=== PATIENT | female | born 1995 | race Asian ===

== ENCOUNTER 2017-02-18 20:58 | Inpatient (IN) | payer SELFPAY ==
[2017-02-18] MEDS ORDERED: fentaNYL 100 MCG/2 ML INJ IVP ONE ×2 (21:11→23:13)
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
[2017-02-18 21:26] LABS: ADD DIFF? YES; ADD MORPH? NO; ADD SCAN? NO; ATYPICAL LYMPHOCYTE FLAG 20 (0-99); FRAGMENT RBC FLAG 0 (0-99); HEMATOCRIT 39.1 % (38.0-47.0); HEMOGLOBIN 13.5 g/dL (12.6-16.3); LEFT SHIFT FLG 20 (0-99); LIPEMIA HEMOLYSIS FLAG 90 (0-99); MEAN CELL HEMOGLOBIN CONCENTR. 34.5 g/dL (32.4-36.7); MEAN CELL VOLUME 89.7 fL (81.5-99.8); MEAN PLATELET VOLUME 10.1 fL (8.7-11.7); PLATELET CLUMPS FLAG 10 (0-99); PLATELET COUNT 396 10^3/uL (150-400); RED BLOOD CELL COUNT 4.36 10^6/uL (4.18-5.33); RED CELL DISTRIBUTION WIDTH 11.9 % (11.5-15.2)
[2017-02-18 21:51] LABS: PLATELET ESTIMATE ADEQUATE (ADEQ)
[2017-02-18 22:02] LABS: ANION GAP 14 mEq/L (8-16); CALCIUM 9.5 mg/dL (8.5-10.4); CARBON DIOXIDE 20 mEq/l (22-31); CHLORIDE 105 mEq/L (97-110); CREATININE 0.7 mg/dL (0.6-1.0); ETHANOL SERUM < 10 mg/dL (0-10); GLOMERULAR FILTRATION RATE > 60; GLUCOSE 101 mg/dL (70-100); POTASSIUM 4.1 mEq/L (3.5-5.2); SODIUM 139 mEq/L (134-144)
[2017-02-18 22:04] LABS: INR 1.1 (0.83-1.16); PROTIME(PATIENT) 14.1 SEC (12.0-15.0)
[2017-02-18 22:05] LABS: APTT 25.8 SEC (23.0-38.0)
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
[2017-02-18] MEDS ORDERED: fentaNYL 100 MCG/2 ML INJ ONE (23:14)
[2017-02-19] MEDS: HYDROmorphONE/DILAUDID 1 MG/ML SYR IVP PRN ×2 (00:08→14:59)
[2017-02-19] MEDS: ONDANSETRON 4 MG/2 ML VIAL IVP PRN ×2 (00:28→15:42)
[2017-02-19] MEDS: HYDROCODONE/APAP 5/325 TAB PO PRN ×4 (02:30→13:38)
[2017-02-19] MEDS: IBUPROFEN 600 MG TAB PO SCH ×3 (05:04→21:03)
[2017-02-19] MEDS: ENOXAPARIN 40 MG/0.4 ML SYR SC SCH (07:31)
[2017-02-19] MEDS: BACITRACIN ZINC 14.2 GM OINTTUBE TP SCH ×2 (07:35→19:36)
[2017-02-19] MEDS ORDERED: LACTULOSE 20 GM/30 ML UDCUP PO PRN (10:53)
[2017-02-19] MEDS ORDERED: BISACODYL 10 MG SUPP PR PRN (10:53)
[2017-02-19] MEDS ORDERED: POLYETHYLENE GLYCOL 3350 17 GM PKT PO PRN (10:53)
[2017-02-19] MEDS ORDERED: MAGNESIUM HYDROXIDE 30 ML UDCUP PO PRN (10:53)
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
[2017-02-19] MEDS: SENNOSIDES/DOCUSATE SODIUM TAB PO SCH ×2 (13:42→19:36)
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
[2017-02-20] MEDS: HYDROCODONE/APAP 5/325 TAB PO PRN ×3 (04:11→22:45)
[2017-02-20] MEDS: IBUPROFEN 600 MG TAB PO SCH ×3 (05:01→22:39)
[2017-02-20] MEDS: ENOXAPARIN 40 MG/0.4 ML SYR SC SCH (08:40)
[2017-02-20] MEDS: SENNOSIDES/DOCUSATE SODIUM TAB PO SCH ×2 (08:40→22:39)
[2017-02-20] MEDS: BACITRACIN ZINC 14.2 GM OINTTUBE TP SCH ×2 (08:40→22:40)
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
[2017-02-21] MEDS: HYDROCODONE/APAP 5/325 TAB PO PRN (04:36)
[2017-02-21 08:26] VITALS: BP 102/70; PULSE 75; RESP 16; TEMP 98.6; O2SAT 96
[2017-02-21] MEDS: SENNOSIDES/DOCUSATE SODIUM TAB PO SCH (08:34)
[2017-02-21] MEDS: ENOXAPARIN 40 MG/0.4 ML SYR SC SCH (08:34)
[2017-02-21] MEDS: IBUPROFEN 600 MG TAB PO SCH ×2 (08:34→14:12)
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
[2017-02-21] MEDS: BACITRACIN ZINC 14.2 GM OINTTUBE TP SCH (14:04)
== END 2017-02-21 15:20 | disposition home or self-care (01) | DRG 536 ==
LOC: EDUNIT# → OBSVTOIN 22:39 → F3N 23:32
PROVIDERS: ADMIT Surgery; ATTEND Surgery
DX: S32.435A Nondisplaced fracture of anterior column [iliopubic] of left acetabulum, initial encounter for closed fracture (principal); S32.512A Fracture of superior rim of left pubis, initial encounter for closed fracture; S32.009A Unspecified fracture of unspecified lumbar vertebra, initial encounter for closed fracture; S06.0X0A Concussion without loss of consciousness, initial encounter; V03.10XA Pedestrian on foot injured in collision with car, pick-up truck or van in traffic accident, initial encounter; Y92.410 Unspecified street and highway as the place of occurrence of the external cause
CPT/HCPCS: 82947-QW; 92523-GN; 96374; 97116-GP; 97162-GP; 97166-GO; 97530-GP; 97535-GO; G0480; J1170; J1650; J2405; J3010

== ENCOUNTER 2017-12-15 12:44 | Inpatient (IN) | payer SELFPAY ==
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
[2017-12-15 14:04] LABS: PLATELET COUNT 368 10^3/uL (150-400)
[2017-12-15] MEDS ORDERED: NICOTINE 21 MG/24 HR PATCH TD ONE (18:41)
[2017-12-15] MEDS ORDERED: LORazepam 1 MG TAB ONE (20:07)
[2017-12-15] MEDS ORDERED: LORazepam 1 MG TAB PO ONE (20:10)
[2017-12-16] MEDS ORDERED: NICOTINE POLACRILEX 2 MG GUM B ONE (12:36)
[2017-12-16] MEDS ORDERED: NICOTINE 21 MG/24 HR PATCH TD ONE (12:54)
[2017-12-16] MEDS ORDERED: OLANZapine 10 MG TAB ONE (17:51)
[2017-12-16] MEDS ORDERED: OLANZapine 10 MG TAB PO SCH (21:00)
--- NOTE | 2017-12-16 22:29 | ASMTTCLDSP ---
TLC Discharge Disposition Disposition: Answers: Admit Disposition Notes: Notes: Per [facility] report; "Per consult w/ [facility] ED Dr. Asencio, [facility] on-call and [facility] motor assembly supervisor Tamra Ibarra, pt continues to meet 27-65 criteria for inpatient hospitalization (IP) due to grave disability. Pt refused to sign rights and pt's copy was placed on her chart for her [facility] RN to provide to her prior to transport to IP placement. [facility] to commence IP bed search." Discharge Concerns/Recommendations: Notes: Per [facility] worker, consultation with [facility] ED physician Ryne Plolack MD and [facility] psychiatrist Dr. Dang, both concurred that patient appears to meet 27-65 criteria requiring psychiatric hospitalization as pt appears to be an imminent risk of harm to self and gravely disabled due to a mental illness condition. The pt was given the 3[facility] prohibited belongings lost while in the emergency department. [facility] psychiatrist Efraín Wakefield MD agreed to accept pt for admission to 3[facility]. Was patient given the Answers: Yes Inpatient Behavioral Health Prohibited Belongings List while in the ED? For inpatient Efraín Wakefield MD admission, the following psychiatrist agreed to accept patient for admission to Behavioral Health ([facility]): Type of Hold: Answers: M1/72-hour Hold Hold initiated by: Answers: Other Notes: Licensed Professional Counselor Date Signed: 12/16/2017 12:29 PM Electronically Signed By:Maliha Grullon
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
--- NOTE | 2017-12-16 22:29 | BAPA ---
[f rep st] ADMISSION PSYCHIATRIC ASSESSMENT DATE OF SERVICE: 12/16/2017 CHIEF COMPLAINT: When asked why the patient is here at the hospital, the patient just stares at this interviewer with a blank stare. Several minutes ago by, the interviewer again asked the patient why she is here and she continues to just stare at this interviewer with a blank stare and does not respond. HISTORY OF PRESENT ILLNESS: The majority of this data is taken from past medical records per [facility] ER report. The patient is a 22- year-old female with recent hospitalization at [facility] for altered mentation, nonverbal, believed to be more than likely secondary to psychiatric etiology. Today, she arrives via private vehicle with her boyfriend and her brother, after being evaluated at [facility] and was recommended she come to the ER for psychiatric placement. History is obtained from her boyfriend who explains that prior to 2 weeks ago, the patient was acting "normally" and 2 weeks ago she was arrested in [place] after she was spontaneously getting into people's vehicles while they were stopped at a stoplights, tendon parking lots. She would get into the vehicles and not say anything and stare at the individual. She subsequently was arrested as a Tamra Gonzalez. The boyfriend followed missing person's report until series of events she was found at a hospital and subsequently evaluated. She has had extensive medical evaluation including CT, MRI, EEG, all of which has been grossly negative per the boyfriend. The specific etiology of her new onset nonverbal status is incompletely clear. She does follow commands. Per ED clinician " when I interviewed the patient she will stare at me, she will follow commands, but will not speak with me." Per [facility] records, date of admission was 12/02/2017 at [facility]. The patient was apparently brought in by police after she was trying to get into a stranger's car in the emergency department. She was described as nonverbal. At one point she tried to flee the emergency department. She presented disheveled, disoriented with thought walking, apparently confused and staring for a long time without answering questions or speaking. The patient is currently admitted at [address] [place] [address] involuntarily and is on an M1 hold due to being gravely disabled and is hospitalized for safety crisis stabilization, medication , evaluation. Further information regarding the patient's history of present illness will be gathered throughout the patient's stay from the patient's past medical records and from the patient once patient's psychiatric condition clears and patient is able to appropriately answer interview questions. PAST PSYCHIATRIC HISTORY: Per [facility] from admission 2017, the patient has never been hospitalized psychiatrically. She has never been in any kind of mental health treatment in the past. She has never taken psychotropic medications. ALLERGIES: No known allergies. CURRENT MEDICATIONS: The patient is currently not on any medications. PAST MEDICAL HISTORY: Per the [facility] ED report. No pertinent medical or surgical history. FAMILY/SOCIAL HISTORY: Per [facility] from admission 12/02/2017 , not much is known as far as social history. The patient is really unable to provide much of anything and patient's ex-boyfriend, Fausto, also knows very little about her history. In any event, we do know that she came to [place] from [facility] [place] approximately 2 years ago. Her ex-boyfriend states that she refers to her mother and her father in [place], but speaks predominantly about her father there. She was born in [place]. She graduated from high school there. She spoke Bengali fluently when she arrived in [place] 2 years ago and she has been living with family members, who she also called mother and father in [place]. Her ex-boyfriend does not believe that this is her biological mother and father, but maybe an aunt and uncle on her father's side of the family. 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 Unclear if this was the same restaurant where she was working when she was dating Fausto. No other social information is available at this time. SOCIAL HISTORY: Per [facility] ED report from current hospitalization. The patient was positive for marijuana, otherwise there were no reports of illicit drug use. No other information is listed in the history and the patient is currently unable to described any social history, and does not respond when asked about social history. SUBSTANCE USE HISTORY: The patient's UDS was positive for marijuana, otherwise , there were no reports of illicit drug use. FAMILY PSYCHIATRIC HISTORY: There is no known family psychiatric history at this time. Again, this will be ongoing throughout the course of the patient's stay as the patient's mentation improves and we are able to gather more information from patient's past medical records and from the patient's friends and family. ADMISSION LABS AND STUDIES: test negative. Chemistry within normal limits. UDS per this admission negative for marijuana and negative for all other illicit substances. Labs dated 12/15/2017: Positive for THC, negative for all other substances. White blood cell count was elevated at 10.92, neutrophils percentage was elevated at 75.8, absolute neutrophils auto was elevated at 8.28, absolute eosinophils auto was low at 0.02. All other labs within normal limits. MENTAL STATUS EXAM: The patient is undernourished female looking stated chronological age, attire is appropriate. Dress is hospital garb, and is neat and clean. Grooming status is appropriate and clean. Ambulation is independent. Gait is normal and coordinated. Posture is normal, sitting somewhat tense, edge of seat during interview. Eye contact is inappropriate and excessive, staring with a blank stare throughout the interview. Motor activity is underactive. Movements are purposeful, organized, coordinated. Somewhat slowed with no involuntary movements noted. Attitude is uncooperative and guarded. The patient appears internally occupied, distracted and does not relate well to this interviewer. Language production is unspontaneous, takes several prompts from this interviewer to get the patient to provide any information and when patient does respond it is monosyllable and irrelevant to interview question. Rate is hesitant and slowed. Latency of response is significantly prolonged with a flat tone and inappropriate low volume and the amount is monosyllable. Articulation is mumbled with no evidencing of impairments and evidence of poverty of speech and thought blocking. When asked , the patient's current mood, the patient does not respond and just stares at this interviewer. The patient's affect is flat, constricted and blunted. The patient's thought process is thought blocking and currently unable to appropriately assess any further thought processes as the patient does not answer to interview questions. The flow is blocked, fragmented. The patient does not report suicidal or homicidal thoughts, ideas or plans. Unable to assess at this time if the patient is experiencing auditory or visual hallucinations. The patient does appear to be attending to internal stimuli at this time. Unable to assess appropriately whether or not the patient is experiencing delusions. Unable to appropriately assess the patient's orientation at this time to person, place, time and situation. Attention and concentration are poor. Insight and judgment are poor and unable to appropriately assess cognitive function at this time. DIAGNOSES: Unspecified psychosis. Cannabis use disorder. FORMULATION: The patient is a 22-year-old female, single, unemployed, living in [place]. Presents to the hospital involuntarily due to risk of being a harm to herself and due to being currently gravely disabled and is currently on an M1 hold. The patient requires continued inpatient care because of her current psychotic presentation and recent psychotic behavior. The patient presents with problems of psychosis that have been steadily increasing over the past several weeks, per the patient's boyfriend. The patient's life has been affected by these problems including being arrested. The onset of symptoms at this point is undetermined. There is not much history available at this time as the patient is unable to describe the events leading up to hospitalization. Based on the patient's current presentation and history per medical record, the patient's diagnosis is unspecified psychotic disorder and cannabis use disorder. The patient is a high safety risk due to current psychosis, recent arrest due to psychotic behavior, and history of bizarre behavior. Protective factors while hospitalized include ongoing safety checks and active involvement in treatment and support from our treatment team. The patient could benefit from inpatient hospitalization for safety crisis stabilization medication evaluation. PLAN: 1. Psychotropic medications: Zyprexa 10 mg p.o. at bedtime for psychosis. 2. Labs: Fasting lipid panel, A1c, liver function tests. 3. Therapy milieu and group therapy throughout the patient's hospitalization. 4. Further investigation including gathering information from patient's relatives and review of past case records. 5. Continued evaluation and monitoring will be ongoing during the course of the patient's inpatient hospitalization to inform treatment to determine if adjustments in medication regimen may benefit the patient's symptoms and for discharge planning. 6. Safety plan and followup outpatient appointments to be established prior to discharge. 7. Confer with inpatient treatment team regarding initial treatment plan. 8. Review informed consent and recommendations for psychotropic medication treatment listed below now, and during the course of hospitalization and during the discharge interview. 9. Estimated length of stay 7-10 days. PSYCHOTROPIC MEDICATION TREATMENT INFORMED CONSENT and RECOMMENDATIONS: Review nature of condition, diagnosis, and prognosis. Review nature and purpose of psychotropic medication treatment. Review type of psychotropic medications being ordered. Review risk and benefits of psychotropic medication treatment. Review probable length of time will need to take medications. Review risk and benefits of not undergoing psychotropic medication treatment. Review alternative treatments to psychotropic medications. Review psychotropic medications contraindications, drug-drug interactions, side effects, and importance of reporting any side effects to a psychiatric provider or nurse during inpatient hospitalization, and upon discharge to patients psychiatric outpatient provider, primary care provider, or other health respiratory care program director. Review importance of asking a nurse, psychiatric provider, or primary care provider any questions or problems concerning the psychotropic medications. Verify patient understands the information that has been provided, and understands, accepts, and agrees to psychotropic medications. Review patients safety plan and importance of patient to communicate to staff while hospitalized if patient is ever a danger to self/others, or unable to care for self, and upon discharge, the importance for patient to contact [facility] or [facility], or go to the nearest emergency room, if patient is ever a danger to self/others, or unable to care for self. Recommend that upon discharge patient establish medication management treatment with a psychiatric provider, establishes routine therapy appointments, and follow-up with primary care provider. Verify patient understands and agrees to these recommendations. /[id number]/MODL MTDD
--- NOTE | 2017-12-16 22:32 | BCON ---
[f rep st] BEHAVIORAL HEALTH CONSULTATION INTERNAL MEDICINE CONSULTATION DATE OF CONSULTATION: 12/16/2017 REFERRING PHYSICIAN: Efraín Wakefield MD REASON FOR REFERRAL: Medical clearance for inpatient behavioral health stay. HISTORY OF PRESENT ILLNESS: This patient was brought to the emergency department by her boyfriend and a male relative, possibly a brother, after evaluation at [facility]. She had a recent stay at [facility] for psychiatric issues after she had been arrested for getting into people's vehicles while they were stopped at stop lights. She had an extensive medical evaluation there, including head CT, brain MRI, EEG, and laboratory testing, all of which have been reported as negative. She provided very little information in the emergency department. Most of the history was per her boyfriend and brother. She was evaluated by the mental health team and admitted for further psychiatric care. PAST MEDICAL HISTORY: She denies any history of any medical illnesses or surgeries. MEDICATIONS: She denies being on any medications. ALLERGIES: There are no known drug allergies. SOCIAL HISTORY: Unclear. From review of records, she has been in [place] There is reportedly a history of cigarette smoking, alcohol use, and marijuana use. 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 FAMILY HISTORY: Unavailable. She is not forthcoming. REVIEW OF SYSTEMS: She denies pain. She denies cough or dyspnea. She denies fevers or chills. She reports she has a good appetite. She denies nausea, vomiting, constipation, or diarrhea. She denies dysuria or urinary frequency. She is unclear as to when her last menstrual period might have been. Otherwise , a 10-point review of systems is negative. PHYSICAL EXAM: VITALS: From yesterday in the emergency department, blood pressure was 110/65. Heart rate was 98. Respiratory rate was 16. Temperature was 36.4 degrees centigrade. Oxygen saturation was 97% on room air. GENERAL: This is a thin woman, appears her chronologic age, dressed in a green hospital smock, cooperative and in no acute distress. HEENT: Extraocular movements are intact. Pupils are equal, round, and reactive to light. Mucous membranes are moist. Dentition is in good condition. NECK: Supple. HEART: There is a regular rate and rhythm, with no murmurs, rubs, or gallops. LUNGS: Clear to auscultation bilaterally. ABDOMEN: Benign. NEUROLOGIC: She is alert and oriented to self only. She does not maintain orientation after she is reoriented by the examiner. Cranial nerves 2-12 are grossly intact. There is no focal weakness. Sensation is intact to light touch, and gait is within normal limits. LABORATORY STUDIES: From the emergency department, beta hCG was negative for . Urine drug screen was non-negative for marijuana but otherwise negative for substances of abuse. Serum drug screen was negative for ethyl alcohol. CBC showed an elevated white blood cell count at 10.92, with no left shift, though there was a predominance of absolute neutrophils at 8.28. There is no anemia. There is no thrombocytopenia. Serum chemistries revealed normal renal function and electrolytes. ASSESSMENT AND RECOMMENDATIONS: 1. Altered mental status, unclear etiology. Apparently has been going on for several weeks, and per report, she has had negative studies, including head CT, brain MRI, and EEG at an outside hospital. If the reports are correct, studies , labs, vitals, and physical exam do not indicate anything like meningitis or encephalitis, so it is likely a primary psychiatric issue versus effect of high doses of marijuana. Consider further neurologic evaluation if she does not respond to psychiatric care as would be expected. 2. Marijuana use. Unclear whether this contributes to her current altered mental status. I see no medical contraindications to this patient's continued stay on the inpatient behavioral health unit or to any psychiatric medications or procedures. Thank you very much for including me in the care of this patient and please do not hesitate to contact me or the hospitalist service should there be any need for further medical evaluation. /[id number]/MODL MTDD
[2017-12-17] MEDS ORDERED: LORazepam 0.5 MG TAB PO PRN (05:43)
[2017-12-17] MEDS ORDERED: MAGNESIUM HYDROXIDE 30 ML UDCUP PO PRN (05:43)
[2017-12-17] MEDS ORDERED: MAG HYDROX/AL HYDROX/SIMETH 30 ML UDCUP PO PRN (05:43)
--- NOTE | 2017-12-17 08:56 | PDMN ---
Medical Necessity [place] [facility] [place] other Psychotic Disorder-adult: INPT program 3 days- danger to self, gravely disabled, unable to care for self, currently on M1 hold.
[2017-12-17] MEDS ORDERED: LORazepam 0.5 MG TAB PO ONE (10:22)
[2017-12-17] MEDS ORDERED: OLANZapine 5 MG TAB PO ONE (10:26)
--- NOTE | 2017-12-17 13:16 | ASMTBHMTP ---
Master Treatment Plan Master Treatment Plan Answers: Impaired Reality for: Date: 12/17/2017 Diagnosis on Admission: unspecified schizophrenia spectrum and other psychotic disorder 298.8 (F28) Expected length of stay: 3-5 days Reason for admission: Notes: Client would not answer* Patient's stated presenting problems: Notes: Client would not answer* Patient's goals for treatment: Notes: Client would not answer* Patient's strengths: Notes: Client would not answer* Identify supports outside of hospital: Notes: Client would not answer* Discharge criteria: Notes: Client would not answer* Initial disposition plan/considerations: Notes: Client would not answer* Master Treatment Plan Required Signatures Psychiatrist signature: Answers: MARGOTH BanguraP: RN on-shift signature: Answers: RN: Patient signature: Answers: Patient: Date Signed: 12/17/2017 01:15 PM Electronically Signed By:Nikita Peters
--- NOTE | 2017-12-17 13:31 | ASMTBHDC ---
Notes Note: Notes: CC was able to contact client's brother (Cassandra) at [phone] (Doctor [phone]) in order to gather additional collateral information as well as assist with her coordination of care. [facility] notes, "that this all started roughly three weeks ago, she would run off or leave without shoes and getting in strangers cars, etc." After her stay at [facility] she was "doing very well, back to her normal self." However, "they didn't give us a prescription for any of her medicaions...and then she went down hill from there." From the information collected, client decompensated post hospitalization from [facility] due to Medication non-compliance as well as extensive Marijuana Use. It was confirmed that client "dabs daliy," or using highly concentrated forms of Marijuana recently. Additionally, was able to provide [facility] with Venessa Lassiter's phone number to follow up on client's Medicaid application due to her non compliance (not speaking, etc). Moreover, client is still refusing to sign the release of information to [facility] in order to make an out-patient referral for discharge planning, etc. CC provided all contact information to [facility] for future coordination. Date Signed: 12/17/2017 01:30 PM Electronically Signed By:Nikita Peters
[2017-12-17] MEDS ORDERED: LORazepam 1 MG TAB PO ONE (14:01)
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
[2017-12-17] MEDS: NICOTINE POLACRILEX 2 MG GUM B PRN (15:01)
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
[2017-12-17] MEDS: OLANZapine 10 MG TAB PO SCH (20:16)
[2017-12-18] MEDS ORDERED: OLANZapine 5 MG TAB PO SCH (09:00)
[2017-12-18] MEDS ORDERED: LORazepam 1 MG TAB PO ONE (12:54)
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
[2017-12-18] MEDS: OLANZapine 10 MG TAB PO SCH (21:05)
[2017-12-19] MEDS ORDERED: LORazepam 1 MG TAB PO ONE (10:37)
--- NOTE | 2017-12-19 10:53 | ASMTBHDC ---
Notes Note: Notes: CC calls brother of client (Cassandra) at to help gather additional collateral information regarding client's visa status as well as inquire about reaching out to assist sister with applying for [place] [employer], etc. No answer, CC was NOT able to leave due to "voice mail not being set up." CC will continue to reach out through out the day, etc. Also, emailed Anshu Mcfarlane for update on her end of Medicaid status, etc. Waiting to hear back. Date Signed: 12/19/2017 10:53 AM Electronically Signed By:Nikita Peters
--- NOTE | 2017-12-19 12:59 | ASMTBHDC ---
Notes Note: Notes: CC speaks to client during check-in. Client was non-verbal, flat affect, limited body language, etc. CC was able to sign the MED-DATA form in order to qualify for Medicaid, etc. Faxed and emailed form to Aletha Lassiter for further follow up. Client remands guarded and silent during interaction. CC confirmed BF will be visiting during lunch and will speak to this data analyst report writer; while assisting with additional collateral information as well as help with D/C planning, CC to send referral to [facility] ([facility] for out-patient care follow up care. Date Signed: 12/19/2017 12:58 PM Electronically Signed By:Nikita Peters
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
[2017-12-19] MEDS: OLANZapine 10 MG TAB PO SCH (21:15)
[2017-12-20] MEDS: NICOTINE POLACRILEX 2 MG GUM B PRN (10:32)
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
[2017-12-20] MEDS: OLANZapine 10 MG TAB PO SCH (19:26)
[2017-12-21] MEDS: ACETAMINOPHEN 325 MG TAB PO PRN (09:49)
--- NOTE | 2017-12-21 15:18 | ASMTBHDC ---
Notes Note: Notes: Patient has been out of her room walking in the [place] most of the day. Patient asked to go outside so she could smoke, to get her paperwork out of her backpack (the paperwork that will allow her to go back to [facility]), and phone numbers for her family. Patient answered questions selectively, when she wanted to answer she spoke right away, at other times she would stair and not speak. She is taking her medications, attending groups and slept 5.5 hours last night. All of patient's requests were discussed. Date Signed: 12/21/2017 01:37 PM Electronically Signed By:Allyson Garcia
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
[2017-12-21] MEDS: NICOTINE POLACRILEX 2 MG GUM B PRN (16:22)
[2017-12-21] MEDS: OLANZapine 10 MG TAB PO SCH (19:16)
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
[2017-12-22] MEDS ORDERED: LORazepam 1 MG TAB PO ONE (15:20)
--- NOTE | 2017-12-22 17:33 | ASMTBHDC ---
Notes Note: Notes: Follow Up: Mental Health [address] [place], [address] O# [phone] Intake Appointment: December 26 @ 14:30. Date Signed: 12/22/2017 05:32 PM Electronically Signed By:Maliha Grullon
--- NOTE | 2017-12-22 17:36 | ASMTBHDC ---
Notes Note: Notes: Follow Up: Mental Health [address], [address] [place], [address] O# [phone] Intake Appointment: December 26 @ 14:30. Date Signed: 12/22/2017 05:35 PM Electronically Signed By:Maliha Grullon
[2017-12-22] MEDS: OLANZapine 10 MG TAB PO SCH (21:24)
[2017-12-23] MEDS: OLANZapine 5 MG TAB PO SCH (09:38)
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
[2017-12-23] MEDS: ACETAMINOPHEN 325 MG TAB PO PRN (13:36)
--- NOTE | 2017-12-23 15:26 | ASMTBHFAM ---
Notes Note: Notes: CC wrote a note for the green card office per request of Cassandra So Anabela's brother, explaining that she has been in the hospital since the 12/16-12/23/2017. Date Signed: 12/23/2017 03:26 PM Electronically Signed By:Maliha Grullon
[2017-12-23] MEDS: OLANZapine 10 MG TAB PO SCH (18:56)
[2017-12-24] MEDS: OLANZapine 5 MG TAB PO SCH (09:07)
--- NOTE | 2017-12-24 12:39 | ASMTBHDC ---
Notes Note: Notes: CC was able to get client's intake assessment re-scheduled for FridayDecember 29 at 2:30pm, due to issues with client not being able to discharge sooner, etc. Placed the change in [facility]. Date Signed: 12/24/2017 12:38 PM Electronically Signed By:Nikita Peters
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
[2017-12-24] MEDS: NICOTINE POLACRILEX 2 MG GUM B PRN (18:33)
[2017-12-24] MEDS: OLANZapine 10 MG TAB PO SCH (20:23)
[2017-12-25] MEDS: OLANZapine 5 MG TAB PO SCH (09:06)
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
[2017-12-25] MEDS: OLANZapine 10 MG TAB PO SCH (20:50)
[2017-12-26] MEDS: OLANZapine 5 MG TAB PO SCH (08:14)
[2017-12-26] MEDS: NICOTINE POLACRILEX 2 MG GUM B PRN (12:41)
--- NOTE | 2017-12-26 13:41 | ASMTBHDC ---
Notes Note: Notes: CC speaks to client briefly during check-in. Client presents as more vocal alert and focused than previous days.* Also, she denies feelings of depression, S/I-H/I and or AVH; however, rates her current level of anxiety at a 6/10. Client continues to improve gradually on the unit and is set to discharge to [facility] Intake at [facility] on FridayDecember 29 (12/29/17) at 2:30pm.* Discharge Plan: Client to discharge by self and/or brother/boyfriend on FridayDecember 29 to her [facility] Intake Appt for continued out-patient mental health services. Date Signed: 12/26/2017 01:40 PM Electronically Signed By:Nikita Peters
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
[2017-12-26] MEDS: OLANZapine 10 MG TAB PO SCH (20:25)
--- NOTE | 2017-12-27 15:14 | ASMTBHDC ---
Notes Note: Notes: Pt. reported feeling "good". Pt. reported she slept "better than yesterday". Pt. reports no issues with her medications. Pt. stated after discharge she will return home and look for a part-time job. Pt. stated she is not attending groups, because "just didn't want to". Pt. rated her anxiety 8/10, but does not present with any behavioral symptoms of anxiety. Pt. rated her depression a 2 or 3/10. Pt. denied SI, HI, AVH, and paranoia. Pt. stated she is "feeling good" about discharging soon. Pt. presents as alert, calm, soft spoken, and with good eye contact. Pt. is medication compliant and slept at least 7 hours. Date Signed: 12/27/2017 03:13 PM Electronically Signed By:Anan Christopher
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
[2017-12-27] MEDS: OLANZapine 10 MG TAB PO SCH (20:59)
--- NOTE | 2017-12-28 15:29 | ASMTBHDC ---
Notes Note: Notes: CC briefly check in with pt. Pt. reports feeling "fine". Pt. stated she is looking forward to discharging tomorrow. Pt. stated her brother will be able to pick her up, adding her boyfriend will be working. Staff report pt. sleeping 7 hours, attending groups, interacting more, being medication compliant and working on her safety plan. Date Signed: 12/28/2017 03:29 PM Electronically Signed By:Anna Christopher
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
[2017-12-28] MEDS: OLANZapine 10 MG TAB PO SCH (19:03)
[2017-12-29 06:26] VITALS: BP 102/55
--- NOTE | 2017-12-29 11:13 | ASMTBHDC ---
Notes Note: Notes: Client is ready to discharge today to BF or brother, who is going to take client to follow up out-patient appt at 2:30pm* Client denies any feelings of S/I or H/I or Violence. No anxiety, depression or AVH. Client presents better and appears to be in a healthier state of mind. Date Signed: 12/29/2017 11:12 AM Electronically Signed By:Nikita Peters
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
== END 2017-12-29 13:25 | disposition home or self-care (01) | DRG 885 ==
LOC: BBEH 12-16 08:40
PROVIDERS: ADMIT Registered Nurse; ATTEND Registered Nurse
DX: F20.9 Schizophrenia, unspecified (principal); F12.959 Cannabis use, unspecified with psychotic disorder, unspecified
CPT/HCPCS: 80305; G0480